=== PATIENT | male | born 1975 | race Caucasian/White ===

== ENCOUNTER 2018-04-15 08:46 | Outpatient (CLI) | payer OTHER ==
--- NOTE | 2018-04-15 09:29 | RAD ---
FOUR VIEWS LUMBAR SPINE: History Pain. COMPARISON: None. FINDINGS: Five lumbar-type vertebral bodies. Lumbar spine vertebral body height is maintained. No fracture. No spondylolisthesis or spondylitis. No abnormal motion upon extension or flexion. There is mild lo ss of disk space height at the thoracolumbar junction. Nonspecific prominent osteophyte formation on the anterior superior aspect of L4. IMPRESSION: Unremarkable 4 views lumbar spine. POS: [id number]
== END 2018-04-15 08:47 | disposition home or self-care (01) ==
LOC: TBSIIMAG 08:46
PROVIDERS: ATTEND Surgery
DX: M51.16 Intervertebral disc disorders with radiculopathy, lumbar region (principal); M54.5 Low back pain
CPT/HCPCS: 72110